=== PATIENT | male | born 1935 | race Caucasian/White ===

== ENCOUNTER 2018-10-20 18:59 | Inpatient (IN) | payer MEDICARE, BC, OTHER | END 2018-10-24 15:30 | LOC: ER 18:59 → ED HOLD 23:54 → SUR 3N 10-21 06:39 | DX: A41.9 Sepsis, unspecified organism (principal); N39.0 Urinary tract infection, site not specified; I10 Essential (primary) hypertension; R53.1 Weakness; F02.80 Dementia in other diseases classified elsewhere, unspecified severity, without behavioral disturbance, psychotic disturbance, mood disturbance, and anxiety ==

== ENCOUNTER 2019-06-04 13:27 | Emergency (ER) | payer MEDICARE, BC ==
[~2019-06-04] VITALS: Ht 180.3 cm; Wt 90.9 kg
[~2019-06-04 13:27] MED LIST: NO HOME MEDS
[2019-06-04 15:45] VITALS: BP 141/80
== END 2019-06-04 15:47 | disposition home or self-care (01) ==
LOC: ER 13:28
DX: S70.02XA Contusion of left hip, initial encounter (principal); S09.8XXA Other specified injuries of head, initial encounter; F03.90 Unspecified dementia, unspecified severity, without behavioral disturbance, psychotic disturbance, mood disturbance, and anxiety; I10 Essential (primary) hypertension; Z86.73 Personal history of transient ischemic attack (TIA), and cerebral infarction without residual deficits; Z95.1 Presence of aortocoronary bypass graft; W18.09XA Striking against other object with subsequent fall, initial encounter; Y93.89 Activity, other specified; Y92.89 Other specified places as the place of occurrence of the external cause; Y99.8 Other external cause status
CPT/HCPCS: 70450; 72170; 73502; 99284

== ENCOUNTER 2020-12-15 10:09 | Inpatient (IN) | payer MEDICARE, BC ==
[~2020-12-15] VITALS: Ht 182.9 cm; Wt 86.4 kg
[~2020-12-15 10:09] MED LIST changes: +ACET-812 PO; +AMLO5TAB4 PO; +APIX5TAB3 PO; +CALC500T11 PO; +LOPE2TAB25 PO; +NATE120T PO; -NO HOME MEDS
[2020-12-15] MEDS ORDERED: dexamethasone sod phosphate 10mg/ml inj IV STA (10:22)
[2020-12-15] MEDS ORDERED: ipratropium/albuterol 3ml nebule NEB ONE (10:25)
[2020-12-15] MEDS ORDERED: azithromycin/NS 500mg/250ml 250 ML IV ONE (10:25)
[2020-12-15] MEDS ORDERED: CefTRIAXone 2gm/D5W 50ml BAG 50 ML IV ONE (10:25)
[2020-12-15] MEDS ORDERED: normal saline 1000ML IV soln IV ONE (10:25)
[2020-12-15] MEDS ORDERED: ALBUTEROL INHALER 1 PUFF/90 MCG INHALER IH PRN ×3 (10:45→17:55)
[2020-12-15 11:00] LABS: BASOPHILS # (AUTO) 0.1 X10'3 (0-0.2); BASOPHILS % (AUTO) 0.7 % (0-1); EOSINOPHILS # (AUTO) 0.2 X10'3 (0-0.9); EOSINOPHILS % (AUTO) 3.2 % (0-6); HEMATOCRIT 37.8 % (42.0-52.0); HEMOGLOBIN 12.6 g/dl (14.0-17.9); LYMPHOCYTES # (AUTO) 0.7 X10'3 (1.1-4.8); LYMPHOCYTES % (AUTO) 10.8 % (21-51); MEAN CORPUSCULAR HEMOGLOBIN 32.5 PG (27.0-31.0); MEAN CORPUSCULAR HGB CONC 33.4 g/dL (33.0-36.5); MEAN CORPUSCULAR VOLUME 97.2 FL (78-98); MONOCYTES # (AUTO) 0.9 X10'3 (0-0.9); MONOCYTES % (AUTO) 12.9 % (2-12); NEUTROPHILS # (AUTO) 4.9 X10'3 (1.8-7.7); NEUTROPHILS % (AUTO) 72.4 % (42-75); PLATELET COUNT 182 X10'3 (140-440); RED BLOOD COUNT 3.89 X10'6 (4.70-6.10); RED CELL DISTRIBUTION WIDTH 13.2 % (11.5-14.5); WHITE BLOOD COUNT 6.8 X10'3 (4.5-11.0)
[2020-12-15 11:15] LABS: ALANINE AMINOTRANSFERASE 22 U/L (12-78); ALBUMIN 3.3 G/DL (3.4-5.0); ALBUMIN/GLOBULIN RATIO 0.8 (1.1-1.5); ALKALINE PHOSPHATASE 64 IU/L (46-116); ANION GAP 10 (8-16); ASPARTATE AMINO TRANSFERASE 55 U/L (10-37); BLOOD UREA NITROGEN 30 MG/DL (7-18); BUN/CREATININE RATIO 17.9 (5.4-32.0); CHLORIDE 104 MMOL/L (99-107); CREATININE 1.68 MG/DL (0.60-1.10); GLUCOSE 138 MG/DL (70-104); POTASSIUM 4.9 MMOL/L (3.5-5.1); SODIUM 142 MMOL/L (135-145); TOTAL CARBON DIOXIDE 27.7 MMOL/L (24-32); TOTAL PROTEIN 7.2 G/DL (6.4-8.2); eGFR 39 ML/MIN
[2020-12-15] MEDS ORDERED: iohexol 350MG/ML 100ml bottle IV ONE (11:58)
--- NOTE | 2020-12-15 13:29 | NUR ---
ABLE TO UPDATE PTS DAUGHTER [facility] [phone] MULTIPLE TIMES RE: PLAN OF CARE. LISANDRO HAS BEEN OUT TO UPDATE DAUGHTER. WILL INFORM HER AFTER CTA IF PT WILL BE ADMITTED OR DC BACK TO [facility]. [facility] STATES IF AFTER 1630 [facility] WILL NEED TO BE CONTACTED. IF BEFORE 1630 CALL [facility] FOR TRANSPORT BACK
[2020-12-15] MEDS: heparin 25,000 UNIT/250ml bag 250 ML IV SCH (14:25)
[2020-12-15] MEDS ORDERED: heparin 10,000 units/1 ML INJ IV ONE (14:25)
[2020-12-15] MEDS ORDERED: CHOL500050 PO (14:39)
[2020-12-15] MEDS ORDERED: LISI20TA28 PO (14:40)
[2020-12-15] MEDS ORDERED: BACI1PAC7 NS (14:48)
--- NOTE | 2020-12-15 17:28 | NUR ---
PTS DAUGHTER CALLED FOR UPDATE. SPOKE WITH MONA RUEDA SHE CALLED LISANDRO DUNN AND STATES DR DAVIS WILL BE ADMITTING PT. INFORMED DAUGHTER OF PLAN FOR ADMIT. SHE WILL CALL BACK IN A COUPLE HOURS FOR ANOTHER UP DATE. CALLED PLACED TO DR DAVIS AND STATES HE IS DOING ADMIT ORDERS NOW.
--- NOTE | 2020-12-15 17:31 | NUR ---
DR DAVIS CALLED BACK WITH QUESTIONS HE SPOKE TO MONA RUEDA
[2020-12-15] MEDS ORDERED: HYDROcodone/acetaminophen 10/325mg tab PO PRN (17:45)
[2020-12-15] MEDS ORDERED: potassium Cl 40MEQ/1/2NS 520ml 520 ML IV PRN ×2 (17:45)
[2020-12-15] MEDS ORDERED: acetaminophen 650mg rectal suppository RC PRN (17:45)
[2020-12-15] MEDS ORDERED: MESSAGE TO PHARMACY PO ONE (17:45)
[2020-12-15] MEDS ORDERED: mag hydrox/Alum hydrox/simeth 30ml oral suspension PO PRN (17:45)
[2020-12-15] MEDS ORDERED: morphine 2 MG/ML inj. syringe IV PRN ×2 (17:45)
[2020-12-15] MEDS ORDERED: ondansetron/PF 4mg/2ml inj IV PRN (17:45)
[2020-12-15] MEDS ORDERED: magnesium 4gm in 100ml NS 100 ML IV PRN (17:45)
[2020-12-15] MEDS ORDERED: HYDROcodone/acetaminophen 5mg/325mg tablet PO PRN (17:45)
[2020-12-15] MEDS ORDERED: glucagon, human recombinant 1mg kit SUBCUT PRN (17:45)
[2020-12-15] MEDS ORDERED: acetaminophen 325mg tablet PO PRN ×2 (17:45)
[2020-12-15] MEDS ORDERED: dextrose ORAL solution 15 GM/59 ML bottle PO PRN ×2 (17:45)
[2020-12-15] MEDS ORDERED: magnesium 2GM in 50ml NS 50 ML IV PRN (17:45)
[2020-12-15] MEDS ORDERED: potassium Cl 20 mEq SR tablet PO PRN ×2 (17:45)
[2020-12-15] MEDS ORDERED: magnesium Cl slow-release 64mg tablet PO PRN (17:45)
[2020-12-15] MEDS ORDERED: diphenhydrAMINE 25mg capsule PO PRN (17:45)
[2020-12-15] MEDS ORDERED: magnesium hydroxide 30ml (MOM) UD suspension PO PRN (17:45)
[2020-12-15] MEDS ORDERED: bisacodyl 10mg suppository rectal RC PRN (17:45)
[2020-12-15] MEDS ORDERED: dextrose 50%-water 50ml dispensing syringe IV PRN ×2 (17:45)
[2020-12-15] MEDS: normal saline 1000ml 1,000 ML IV SCH (17:45)
--- NOTE | 2020-12-15 18:03 | NUR ---
INTO ASIST PT WITH REPOSITIONING. PT MOVED UP IN BED. INFORMED PT THAT HIS DAUGHTER KIMBERLY HAS BEEN IN CONTACT WITH US ALL DAY AND SHE IS THINKING ABOUT HIM. ASSISTED PT WITH URINAL. UA COLLECTED. PT DORITA WELL
[2020-12-15] MEDS ORDERED: heparin 10,000 units/1 ML INJ IV PRN (18:40)
[2020-12-15 18:53] LABS: CLARITY,URINE CLEAR (Clear); COLOR,URINE YELLOW (Yellow); GLUCOSE, URINE 250 mg/dl (Neg); KETONES,URINE TRACE mg/dl (Neg); LEUKOCYTE ESTERASE ,URINE NEGATIVE (Neg); NITRITES, URINE NEGATIVE (Neg); OCCULT BLOOD,URINE SMALL (Neg); PROTEIN,URINE NEGATIVE (Neg); UROBILINOGEN,URINE 0.2 E.U/dL (0.2-1.0)
[2020-12-15 18:53] LABS: HEMOGLOBIN A1C 6.7 % (4.5-6.2)
[2020-12-15 18:58] LABS: UA COLLECTION TYPE VOIDED
[2020-12-15 19:14] LABS: WBC,URINE 0-4 /HPF (0-4)
[2020-12-15 19:15] LABS: BACTERIA,URINE NONE SEEN /HPF (Neg)
[2020-12-15 19:16] LABS: HYALINE CASTS 0-3 /LPF (NEGATIVE)
[2020-12-15 19:17] LABS: SQUAMOUS EPITHELIAL CELL,UR FEW /LPF (FEW)
[2020-12-15] MEDS: K and/or MAG REPLACEMENT MC SCH (20:28)
[2020-12-15] MEDS: insulin glargine (Lantus) pen - multi-dose SQ SCH (21:00)
--- NOTE | 2020-12-15 21:04 | NUR ---
IN TO CHECK ON PATIENT. PLACED URINAL FOR A VOID. HE IS VISITING WITH DAUGHTER. IVF INFUSING, IV SITE WNLS.
--- NOTE | 2020-12-15 21:36 | NUR ---
Received call from Lucas in lab and states that he cannot even pull a value for the PTT, so RN stopped the heparin. Call put out for hospitalist to call me back. Will redraw blood in 20-30 min to redo boubacar PTT.
--- NOTE | 2020-12-15 22:00 | NUR ---
I have received report from KLAUS Alvarado and had the opportunity to ask questions.
--- NOTE | 2020-12-15 22:04 | NUR ---
met hospitalist [facility] and updated her on PTT.
[2020-12-15 23:00] VITALS: BP 143/66
--- NOTE | 2020-12-15 23:00 | NUR ---
Pt arrived in the unit. Pt is awake, A/O x 1 . Oriented the pt in the room and adviced to push the call light if he needs something. VS : 143/66. 96.8 temp, 81 bpm, 20 resp, 93% RA. Tele monitor placed.
--- NOTE | 2020-12-16 01:35 | NUR ---
Paged Dr. Christianson. PAGER ID: [phone] MESSAGE: This is KLAUS Gibson U x [id number]. Pt in [address] 85 M. Dx : Covid +, Acute PE. Pt is on heparin gtt. DVT/PE PTT was drawn 2x, but lab couldn't get a number on both. Heparin gtt is held at this time. What do you want us to do?
[2020-12-16 02:00] VITALS: BP 134/67
--- NOTE | 2020-12-16 02:37 | NUR ---
Paged Dr. Christianson. PAGER ID: [phone] MESSAGE: This is KLAUS Gibson U x [id number]. Pt in [address] 85 M. Dx : Covid +, Acute PE. Pt is on heparin gtt. DVT/PE PTT was drawn 2x, but lab couldn't get a number on both. Heparin gtt is held at this time. What do you want us to do?
--- NOTE | 2020-12-16 02:56 | NUR ---
Dr. Christianson ordered to follow the protocol. Heparin gtt rate decreased by 3 units/kg/hr. Heparin drip is now running @ 12 ml/hr, and will recheck DVT/PE PTT after 2 hours.
[2020-12-16 05:49] LABS: ALANINE AMINOTRANSFERASE 21 U/L (12-78); ALBUMIN 2.8 G/DL (3.4-5.0); ALBUMIN/GLOBULIN RATIO 0.7 (1.1-1.5); ALKALINE PHOSPHATASE 58 IU/L (46-116); ANION GAP 6 (8-16); ASPARTATE AMINO TRANSFERASE 36 U/L (10-37); BILIRUBIN,TOTAL 0.4 MG/DL (0.1-1.0); BLOOD UREA NITROGEN 29 MG/DL (7-18); CALCIUM 8.9 MG/DL (8.5-10.1); CHLORIDE 111 MMOL/L (99-107); CHOL/HDL RATIO 3.3 (0.00-4.99); CHOLESTEROL 158 MG/DL (0-200); CREATININE 1.38 MG/DL (0.60-1.10); GLUCOSE 212 MG/DL (70-104); HDL CHOLESTEROL 48 MG/DL (35-60); LDL CHOLESTEROL 96 MG/DL (50-100); MAGNESIUM 2.3 MG/DL (1.5-2.4); PHOSPHORUS 3.6 MG/DL (2.3-4.5); POTASSIUM 5.2 MMOL/L (3.5-5.1); SODIUM 144 MMOL/L (135-145); TOTAL CARBON DIOXIDE 27.4 MMOL/L (24-32); TOTAL PROTEIN 6.6 G/DL (6.4-8.2); TRIGLYCERIDES 96 MG/DL (20-135); eGFR 49 ML/MIN
--- NOTE | 2020-12-16 06:17 | NUR ---
Problems reprioritized. Patient report given, questions answered & plan of care reviewed with KLAUS Hernandez.
--- NOTE | 2020-12-16 06:21 | NUR ---
Patient in room PCU 3008. I have received report from KLAUS Gibson and had the opportunity to ask questions and assume patient care.
[2020-12-16 07:00] VITALS: BP 122/68
[2020-12-16] MEDS: DEXAMETHASONE 6 MG TABLET PO SCH (07:06)
[2020-12-16] MEDS: cholecalciferol (vitamin D3) 1,000 unit (25mcg) tablet PO SCH (07:06)
[2020-12-16] MEDS: lisinopril 20mg tablet PO SCH (07:26)
[2020-12-16 07:48] LABS: BASOPHILS % (AUTO) 0.2 % (0-1); EOSINOPHILS % (AUTO) 0 % (0-6); HEMATOCRIT 34.4 % (42.0-52.0); HEMOGLOBIN 11.9 g/dl (14.0-17.9); LYMPHOCYTES # (AUTO) 0.5 X10'3 (1.1-4.8); MEAN CORPUSCULAR HEMOGLOBIN 33.5 PG (27.0-31.0); MEAN CORPUSCULAR HGB CONC 34.5 g/dL (33.0-36.5); MEAN PLATELET VOLUME 8.4 FL (7.4-10.4); MONOCYTES # (AUTO) 0.8 X10'3 (0-0.9); MONOCYTES % (AUTO) 8.7 % (2-12); NEUTROPHILS % (AUTO) 86.1 % (42-75); PLATELET COUNT 177 X10'3 (140-440); RED BLOOD COUNT 3.54 X10'6 (4.70-6.10); RED CELL DISTRIBUTION WIDTH 12.9 % (11.5-14.5); WHITE BLOOD COUNT 9.3 X10'3 (4.5-11.0)
[2020-12-16] MEDS: K and/or MAG REPLACEMENT MC SCH ×2 (08:00→19:00)
[2020-12-16 11:00] VITALS: BP 133/66
[2020-12-16] MEDS: insulin Lispro (HumaLOG) vial - multi-dose SQ SCH ×2 (11:20→14:12)
[2020-12-16] MEDS: heparin 25,000 UNIT/250ml bag 250 ML IV SCH (13:09)
[2020-12-16] MEDS: normal saline 1000ml 1,000 ML IV SCH (14:15)
[2020-12-16 15:00] VITALS: BP 126/56
--- NOTE | 2020-12-16 17:55 | NUR ---
Patient found at 1630 with Both IV lines out and cannula thrown out. Bleeding controlled. Bed changed and 22g placed into left forearm. Patent repositioned in bed with help of KLAUS Denson. Heparin restarted at 1520. Dinner placed in front of patient. Bed alarm on.
[2020-12-16 18:00] VITALS: BP 136/78
--- NOTE | 2020-12-16 18:20 | NUR ---
Problems reprioritized. Patient report given, questions answered & plan of care reviewed with KLAUS Guerra.
--- NOTE | 2020-12-16 18:36 | NUR ---
: PATIENT IN ROOM 3008A REYMUNDO MULLEN PULL OUT IV IN MULTIPLE TIMES AND MONITOR REFUSING HEPARING DRIP PATIENT NEED RESTRAINS ORDER PLEASE STAT THANKS
--- NOTE | 2020-12-16 20:06 | NUR ---
Pt in rm [address] pulled out IV tubing, tele monitor, climbing out of bed, and combative. Can we get an order for a restraint? Pt also is refusing heparin drip him pulled out by him self I founded bleeding ... Charlie x [phone].
[2020-12-16] MEDS: insulin glargine (Lantus) pen - multi-dose SQ SCH (21:24)
[2020-12-16 22:00] VITALS: BP 138/90
[2020-12-17 00:01] VITALS: BP 145/78
[2020-12-17] MEDS: heparin 25,000 UNIT/250ml bag 250 ML IV SCH (00:40)
[2020-12-17 06:00] VITALS: BP 140/92
[2020-12-17 07:43] LABS: BASOPHILS % (AUTO) 0.1 % (0-1); EOSINOPHILS % (AUTO) 0.2 % (0-6); HEMATOCRIT 35.9 % (42.0-52.0); HEMOGLOBIN 12.5 g/dl (14.0-17.9); LYMPHOCYTES # (AUTO) 0.7 X10'3 (1.1-4.8); LYMPHOCYTES % (AUTO) 6.2 % (21-51); MEAN CORPUSCULAR HEMOGLOBIN 33.6 PG (27.0-31.0); MEAN CORPUSCULAR HGB CONC 34.7 g/dL (33.0-36.5); MEAN CORPUSCULAR VOLUME 96.9 FL (78-98); MEAN PLATELET VOLUME 8.7 FL (7.4-10.4); MONOCYTES # (AUTO) 1.2 X10'3 (0-0.9); MONOCYTES % (AUTO) 11.5 % (2-12); NEUTROPHILS # (AUTO) 8.6 X10'3 (1.8-7.7); PLATELET COUNT 203 X10'3 (140-440); RED BLOOD COUNT 3.71 X10'6 (4.70-6.10); RED CELL DISTRIBUTION WIDTH 12.9 % (11.5-14.5); WHITE BLOOD COUNT 10.5 X10'3 (4.5-11.0)
[2020-12-17] MEDS: K and/or MAG REPLACEMENT MC SCH (08:00)
[2020-12-17 08:47] LABS: ALANINE AMINOTRANSFERASE 25 U/L (12-78); ALBUMIN 2.8 G/DL (3.4-5.0); ALBUMIN/GLOBULIN RATIO 0.7 (1.1-1.5); ALKALINE PHOSPHATASE 58 IU/L (46-116); ANION GAP 10 (8-16); ASPARTATE AMINO TRANSFERASE 55 U/L (10-37); BILIRUBIN,TOTAL 0.4 MG/DL (0.1-1.0); BLOOD UREA NITROGEN 33 MG/DL (7-18); BUN/CREATININE RATIO 23.9 (5.4-32.0); CALCIUM 8.9 MG/DL (8.5-10.1); CHLORIDE 108 MMOL/L (99-107); CREATININE 1.38 MG/DL (0.60-1.10); GLUCOSE 148 MG/DL (70-104); MAGNESIUM 2.3 MG/DL (1.5-2.4); PHOSPHORUS 3.6 MG/DL (2.3-4.5); POTASSIUM 4.4 MMOL/L (3.5-5.1); SODIUM 143 MMOL/L (135-145); TOTAL CARBON DIOXIDE 25.2 MMOL/L (24-32); TOTAL PROTEIN 6.6 G/DL (6.4-8.2); eGFR 49 ML/MIN
[2020-12-17] MEDS: lisinopril 20mg tablet PO SCH (08:52)
[2020-12-17] MEDS: DEXAMETHASONE 6 MG TABLET PO SCH (08:52)
[2020-12-17] MEDS: cholecalciferol (vitamin D3) 1,000 unit (25mcg) tablet PO SCH (08:52)
[2020-12-17] MEDS: normal saline 1000ml 1,000 ML IV SCH (09:45)
[2020-12-17 11:00] VITALS: BP 136/70
[2020-12-17 14:07] LABS: PARTIAL THROMBOPLASTIN TIME 72 SECONDS (22-32)
[2020-12-17] MEDS ORDERED: DEXA6TAB PO (14:25)
[2020-12-17] MEDS ORDERED: APIX5TAB3 PO (14:25)
--- NOTE | 2020-12-17 17:45 | NUR ---
Pt picked up by [employer] to go back to [facility]. Discharge information given to pt and phone call given to daughter. IV removed, pt is stable and on room air
== END 2020-12-17 17:30 | DRG 177 ==
LOC: ER 10:10 → ED HOLD 17:44 → PCU 3S 22:45
PROVIDERS: ADMIT Family Medicine; ATTEND Family Medicine
PROC: BW241ZZ Computerized Tomography (CT Scan) of Chest and Abdomen using Low Osmolar Contrast (ICD-10-PCS; principal; 2020-12-15)
DX: U07.1 COVID-19 (principal); I26.99 Other pulmonary embolism without acute cor pulmonale; J12.82 Pneumonia due to coronavirus disease 2019; D68.9 Coagulation defect, unspecified; N17.9 Acute kidney failure, unspecified; E11.22 Type 2 diabetes mellitus with diabetic chronic kidney disease; F03.90 Unspecified dementia, unspecified severity, without behavioral disturbance, psychotic disturbance, mood disturbance, and anxiety; I48.91 Unspecified atrial fibrillation; I12.9 Hypertensive chronic kidney disease with stage 1 through stage 4 chronic kidney disease, or unspecified chronic kidney disease; N18.9 Chronic kidney disease, unspecified; Z79.01 Long term (current) use of anticoagulants; Z85.46 Personal history of malignant neoplasm of prostate; Z86.718 Personal history of other venous thrombosis and embolism; Z86.73 Personal history of transient ischemic attack (TIA), and cerebral infarction without residual deficits; Z87.19 Personal history of other diseases of the digestive system; Z87.891 Personal history of nicotine dependence; Z95.1 Presence of aortocoronary bypass graft
CPT/HCPCS: 36415; 71045; 71275; 80053; 80061; 81001; 82948; 83036; 83605; 83735; 83880; 84100; 84145; 84484; 85025; 85730; 87040; 87081; 87635; 93005; 93306; 94640; 94760; 96365; 99291; C9803; G0378; J0456; J0696; J1100; J1644; J1815; J7030; J8540; Q9967